=== PATIENT | female | born 1935 | race Caucasian/White ===

== ENCOUNTER 2017-11-20 17:26 | Emergency (ER) | payer OTHER, BC ==
[2017-11-20 17:32] VITALS: BP 0/0; PULSE 0; BMI 29.0
[2017-11-20] MEDS ORDERED: EPINEPHrine 1:10,000 (P-F SYR) 1 MG/10 ML DISP.SYRIN ONE (17:38)
[2017-11-20] MEDS ORDERED: SODIUM BICARBONATE 8.4% - 50 ML ONE (17:38)
[2017-11-20 17:43] VITALS: TEMP 97.4
--- NOTE | 2017-11-20 17:46 | PDOC ---
History of Present Illness - General History Source: EMS, Significant Other Exam Limitations: Clinical Condition - History of Present Illness Initial Comments: 11/20/17 17:52 The patient is a 82 year old female, with a significant past medical history of CVA and hyperlipidemia, who presents to the emergency department via EMS with, a cardiac arrest. As per EMS, the patient collapsed at 4:41pm due to upper respiratory congestion and her automatically called 911. The cytogenetic technologist arrived at 4:45pm, laid her down on the floor, and started CPR. EMS arrived shortly after and defibrillated her once then started chest compressions. On route EMS reports administering 3 of Epi and Bicarb then defibrillated her one additional time. EMS reports putting in a 7.0 ET tube. EMS arrived at 5:25pm. Allergies: NKA <Pauline Stallworth - Last Filed: 11/20/17 17:59> - General History Source: EMS, Significant Other Exam Limitations: Clinical Condition <Silvia Caraballo - Last Filed: 11/20/17 18:26> - General Chief Complaint: Cardiac Arrest Stated Complaint: CARDIAC ARREST Time Seen by Provider: 11/20/17 17:41 Past History <Pauline Stallworth - Last Filed: 11/20/17 17:59> - Past Medical History Cardiac Disorders: Yes (heart murmur) CVA: Yes (unable to walk, uses wheelchair) COPD: No HTN: Yes - Suicide/Smoking/Psychosocial Hx Smoking History: Unknown if ever smoked Have you smoked in the past 12 months: No Information on smoking cessation initiated: No Hx Alcohol Use: No Drug/Substance Use Hx: No Substance Use Type: None <Silvia Caraballo - Last Filed: 11/20/17 18:26> - Past Medical History Allergies/Adverse Reactions: Allergies Allergy/AdvReac Type Severity Reaction Status Date / Time No Known Allergies Allergy Verified 11/20/17 17:35 Review of Systems - Review of Systems Able to Perform ROS?: No <Pauline Stallworth - Last Filed: 11/20/17 17:59> *Physical Exam - Vital Signs Last Vital Signs Temp Pulse Resp BP Pulse Ox 97.4 F L 0 L 12 0/0 0 L 11/20/17 17:26 11/20/17 17:26 11/20/17 17:26 11/20/17 17:26 11/20/17 17:26 <Pauline Stallworth - Last Filed: 11/20/17 17:59> - Vital Signs Last Vital Signs Temp Pulse Resp BP Pulse Ox 97.4 F L 0 L 12 0/0 0 L 11/20/17 17:26 11/20/17 17:26 11/20/17 17:26 11/20/17 17:26 11/20/17 17:26 - Physical Exam Comments: GENERAL: Unresponsive. CPR in progress with Mark machine. Intubated. HEAD: No signs of trauma EYES: Pupils fixed, mid-dilated. Sclera anicteric, conjunctiva clear ENT: Auricles normal inspection, hearing grossly normal, nares patent, oropharynx clear without exudates. Dry mucosa. ETT position confirmed via DL. NECK: Normal ROM, supple, no lymphadenopathy, JVD, or masses LUNGS: Scattered rhonchi. Good air entry B/L. HEART: Unable to appreciate any cardiac sounds. ABDOMEN: Soft, no masses EXTREMITIES: Normal range of motion, no edema. No clubbing or cyanosis. No erythema NEUROLOGICAL: Pt unresponsive. SKIN: Warm, Dry, normal turgor, no rashes or lesions noted. <Silvia Caraballo - Last Filed: 11/20/17 18:26> Medical Decision Making - Medical Decision Making 11/20/17 18:02 Patient arrived via EMS with ACLS protocol in progress. Patient was shocked x2 for vfib, found in PEA after each time. She was given multiple rounds of epi. Resuscitation continued for 45 minutes total, at which time bedside sono was done in ED, minimal cardiac motion, still in PEA. Further efforts were deemed futile at this point. Time of 17:31. notified in ED shortly thereafter. Family en route. Left message with [facility] (no investigators available at present), awaiting callback. 11/20/17 18:25 Received callback from [facility]. Not an [facility] case. Release number [id number]. <Silvia Caraballo - Last Filed: 11/20/17 18:26> *DC/Admit/Observation/Transfer - Attestations Scribe Attestion: 11/20/17 17:54 Documentation prepared by Pauline Stallworth, acting as medical insurance claims specialist for Silvia Caraballo MD. <Pauline Stallworth - Last Filed: 11/20/17 17:59> <Silvia Caraballo - Last Filed: 11/20/17 18:26> Diagnosis at time of Disposition: in hospital-based emergency department, Cardiac arrest - Discharge Dispostion Disposition: Condition at time of disposition: - Referrals Referrals: Jeison Gilman [Primary Care Provider] -
== END 2017-11-20 21:37 | disposition expired ==
LOC: JER 17:26
PROC: 5A12012 Performance of Cardiac Output, Single, Manual (ICD-10-PCS; principal; 2017-11-20)
DX: I46.9 Cardiac arrest, cause unspecified (principal); I10 Essential (primary) hypertension; E78.5 Hyperlipidemia, unspecified; Z86.73 Personal history of transient ischemic attack (TIA), and cerebral infarction without residual deficits
CPT/HCPCS: 99283-25